=== PATIENT | male | born 1935 | race Caucasian/White ===

== ENCOUNTER → 2016-11-16 | Outpatient (CLI) | payer MEDICARE, BC ==
--- NOTE | ~2016-11-16 | PUL ---
PATIENT'S NAME: [facility] AGE: 81 Y [address] 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 FVC was 3.14 liters which is 69% of predicted and low, FEV1 was 1.88 liters which is 58% of predicted and low, and FEV1/FVC was 60% and low. The flow volume curve revealed significant airflow limitation especially on low lung volumes. After bronchodilator administration FVC increased to 3.17 liters which is a 1% increase, and FEV1 increased to 1.95 liters which is a 4% increase. FEV1/FVC was 61%. 2. DLCO was 20 with an adjusted DLCO of 18.8 which is 85% of predicted and normal. 3. Total lung capacity was 5.66 liters which is 80% of predicted and low, and residual volume was 2.53 liters which is 87% of predicted and normal. 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 There is no significant bronchodilator response. His diffusion capacity is normal. MD AYLA TRIANA/mariely /[id number] dtt: 11/19/16 0941 , PENNIE OCHOA dtd: 11/19/16 0634
== END | disposition disaster alternative care site (69) ==
LOC: GRTH 10:58
DX: J44.9 Chronic obstructive pulmonary disease, unspecified (principal)

== ENCOUNTER → 2016-11-16 | Outpatient (CLI) | payer MEDICARE, BC | END | disposition disaster alternative care site (69) | LOC: GRAD 14:00 | DX: J44.9 Chronic obstructive pulmonary disease, unspecified (principal); J98.4 Other disorders of lung; J98.11 Atelectasis; J98.6 Disorders of diaphragm; R91.1 Solitary pulmonary nodule ==